=== PATIENT | female | born 1995 | race Hispanic/Latino ===

== ENCOUNTER 2025-03-23 22:28 | Inpatient (IN) | payer MEDICAID ==
[~2025-03-23] VITALS: Ht 149.9 cm; Wt 82.1 kg
[2025-03-23] MEDS ORDERED: TERBUTALINE SULFATE 1 MG/ML AMP SUB-Q PRN (23:45)
[2025-03-23] MEDS ORDERED: CALCIUM CARBONATE 500 MG CHEW PO PRN (23:45)
[2025-03-23] MEDS ORDERED: LACTATED RINGER'S 1,000 ML IV PRN (23:45)
[2025-03-23] MEDS ORDERED: MAGNESIUM HYDROXIDE/AL HYDROX 30 ML CUP PO PRN (23:45)
[2025-03-23 23:54] LABS: MCH 29.5 PG (25.6-32.2); MCHC 33.3 g/dL (32.2-35.5); MCV 88.4 fL (79.4-94.8); RBC 4.14 M/uL (3.93-5.22)
[2025-03-24] MEDS ORDERED: PENICILLIN G POTASSIUM 5 MUNITS in SODIUM CHLORIDE 0.9% 100 ML IV ONE
[2025-03-24 00:22] LABS: ABO O; ANTIBODY SCREEN NEGATIVE; RH POSITIVE
[2025-03-24 00:42] LABS: AMPHETAMINES, URINE NEGATIVE (NEGATIVE); BARBITURATES, URINE NEGATIVE (NEGATIVE); BENZODIAZEPINE, URINE NEGATIVE (NEGATIVE); CANNABINOID, URINE NEGATIVE (NEGATIVE); COCAINE, URINE NEGATIVE (NEGATIVE); ECSTASY, URINE NEGATIVE (NEGATIVE); FENTANYL, URINE NEGATIVE (NEGATIVE); METHADONE, URINE NEGATIVE (NEGATIVE); OPIATES, URINE NEGATIVE (NEGATIVE); OXYCODONE, URINE NEGATIVE (NEGATIVE); PHENCYCLIDINE, URINE NEGATIVE (NEGATIVE)
[2025-03-24 02:03] VITALS: BP 127/86
[2025-03-24] MEDS ORDERED: PENICILLIN G POTASSIUM 2.5 MUNITS in SODIUM CHLORIDE 0.9% 100 ML IV SCH (04:00)
[2025-03-24] MEDS ORDERED: CEFAZOLIN SODIUM 2 GM in SODIUM CHLORIDE 0.9% 100 ML IV SCH (07:00)
[2025-03-24] MEDS ORDERED: AZITHROMYCIN 500 MG in DEXTROSE 5% 250 ML IV SCH (07:00)
[2025-03-24] MEDS ORDERED: MORPHINE SULFATE 1 MG/ML VIAL ONE (07:41)
[2025-03-24] MEDS ORDERED: Ropivacaine HCl 0.5% 30 ML VIAL ONE (07:41)
[2025-03-24] MEDS ORDERED: OXYTOCIN 10 UNITS/ML VIAL ONE (07:41)
[2025-03-24] MEDS ORDERED: fentaNYL citrate 100 MCG/2 ML VIAL ONE (07:41)
[2025-03-24] MEDS ORDERED: LIDOCAINE HCL 2% 5 ML SDV ONE (07:41)
[2025-03-24] MEDS ORDERED: BUPIVACAINE 0.75% IN DEXTROSE 2 ML AMP ONE (07:41)
[2025-03-24] MEDS ORDERED: SODIUM CHLORIDE 0.9% 20 ML IV ONE (07:41)
[2025-03-24] MEDS ORDERED: PHENYLEPHRINE HCL IN 0.9% NACL 1 MG/10 ML SYR ONE (08:11)
[2025-03-24] MEDS ORDERED: DEXAMETHASONE SOD PHOS 4 MG/ML VIAL ONE (08:59)
[2025-03-24] MEDS ORDERED: HYDROmorphone HCL 1 MG/ML SYR IV PRN (09:00)
[2025-03-24] MEDS ORDERED: PROCHLORPERAZINE EDISYLATE 10 MG/2 ML VIAL IV PRN ×2 (09:00→10:00)
[2025-03-24] MEDS ORDERED: NALOXONE HCL 0.4 MG SYR IV PRN (09:00)
[2025-03-24] MEDS ORDERED: KETOROLAC TROMETHAMINE 30 MG/ML VIAL IV PRN (09:00)
[2025-03-24] MEDS ORDERED: SENNOSIDES/DOCUSATE 1 EA TAB PO SCH (09:54)
[2025-03-24] MEDS ORDERED: LACTATED RINGER'S 1,000 ML IV SCH (09:58)
[2025-03-24] MEDS ORDERED: PROMETHAZINE HCL 25 MG SUPP PR PRN (10:00)
[2025-03-24] MEDS ORDERED: HYDROCODONE/ACETA 5/325 TAB PO PRN (10:00)
[2025-03-24] MEDS ORDERED: PROMETHAZINE HCL 25 MG TAB PO PRN (10:00)
[2025-03-24] MEDS ORDERED: ACETAMINOPHEN 500 MG TAB PO SCH (10:00)
[2025-03-24] MEDS ORDERED: OXYCODONE HCL 5 MG TAB PO PRN (10:00)
[2025-03-24] MEDS ORDERED: OXYTOCIN/0.9 % SODIUM CHLORIDE 500 ML IV SCH (10:00)
[2025-03-24] MEDS ORDERED: LIDOCAINE 2% VISCOUS 6 ML SYR TOP ONE (10:00)
[2025-03-24] MEDS ORDERED: METOCLOPRAMIDE HCL 10 MG/2 ML SDV IV PRN (10:00)
--- NOTE | 2025-03-24 10:03 | NUR ---
03/24/25 Treasure3 Karen Barba 7598- PT IS TRANSFERED TO ROOM 103 VIA STRETCHER. PT IS AWAKE AND TALKING WITH RN AND BARREL CAP SETTER. PT DENIES PAIN AND NAUSEA. BREATHING IS EVEN AND UNLABORED. BEDSIDE REPORT RECIEVED. SURGICAL SITE IS CDI. CAI IS DRAINING CLEAR, YELLOW URINE. LR WITH PIT IS INFUSING WNL IN THE L HAND. BABY IS AT BREAST WITH [facility]BC RN'S AT BEDSIDE WITH BABY. 0974- PT IS WITH BABY AT BREAST. PILLOW GIVEN TO PT TO SUPPORT ARMS WHILE BREAST FEEDING. LABOR AND SLINGER SEQUINS'S WITH BABY AT BEDSIDE. PT DENIES PAIN AND NAUSEA.
[2025-03-24 10:14] VITALS: BP 99/51
[2025-03-24] MEDS ORDERED: SIMETHICONE 80 MG CHEW PO SCH (11:00)
[2025-03-24] MEDS ORDERED: IBUPROFEN 600 MG TAB PO SCH (14:00)
--- NOTE | 2025-03-25 08:44 | OR ---
[facility] [address], [place] [address] Signed DATE OF OPERATION: 03/24/2025 SURGEON: Lola George MD PREOPERATIVE DIAGNOSES: 1. Intrauterine at 35 and 4/7th weeks. 2. Prior x2. 3. premature rupture of membranes. POSTOPERATIVE DIAGNOSES: 1. Intrauterine at 35 and 4/7th weeks. 2. Prior x2. 3. premature rupture of membranes. PROCEDURE: Repeat low transverse section. FINDINGS: Clear amniotic fluid. Female fetus in vertex presentation. Apgars of 9 and 9, weight of 5 pounds 11 ounces. Normal uterus, ovaries, and tubes. ANESTHESIA: Spinal. DIRECTOR OF CUSTOMER ACQUISITION: None. IV FLUIDS: 1300 mL crystalloid. QBL: 250 mL. URINE OUTPUT: 25 mL of clear urine. DRAINS: Dawn to gravity. SPECIMENS: Electronically Signed By: LOLA GEORGE MD 03/25/25 0844 PATIENT NAME: MARGARET CARO OPERATIVE REPORT DATE OF : 89 REPORT #: [id number] PHYSICIAN: LOLA GEORGE MD PCP: NO PRIMARY CARE PHYSICIAN REPORT IS CONFIDENTIAL AND NOT TO BE RELEASED WITHOUT AUTHORIZATION [facility] [address] [place] [id number] Signed None. COUNTS: Correct x2. COMPLICATIONS: None apparent. TECHNIQUE IN DETAIL: With informed consent, the patient was taken to the operating room where spinal analgesia was placed. Lower extremities were placed in SCD pneumatic compression devices. 2 g of Ancef and 500 mg of azithromycin were given IV per protocol. She was prepped and draped in sterile fashion and time-out was performed per protocol. Under adequate analgesia, approximately 8 inch Pfannenstiel skin incision was made. The old keloid scar on her skin from a previous was removed. Sharp dissection was carried down to the layer of the rectus fascia, which was nicked in the midline. The rectus fascia little was enlarged bilaterally using sharp dissection. The rectus muscles were then taken down from the fascia using a combination of sharp and blunt dissection. This was performed both superiorly and inferiorly. The rectus muscles were in the midline at the most superior aspect. The separation of the rectus muscles was carried out inferiorly using sharp dissection. The peritoneum was identified, grasped with hemostats and elevated. It was carefully incised with Metzenbaum scissors, ensuring no bowel below. The peritoneal opening was enlarged with the surgeon's finger. A finger sweep on the anterior aspect of the abdominal wall revealed many omental adhesions as well as the bladder adhesed superiorly. We then carefully enlarged this peritoneal opening with sharp dissection paying close attention to the omental adhesions below as well as the bladder adhesions to the lower part of the uterus and omentum. A bladder flap was created with combination of sharp and blunt dissection to get the bladder away from the lower uterine segment. We had to dissect approximately 3 inches and dropped the bladder this distance to ensure its safety. A bladder blade was then placed. A scalpel was then used to create a low transverse uterine incision. Sharp dissection was carried down to the superficial layers. The remainder of the myometrium was transected with the surgeon's finger. The bulging membranes were ruptured with an Allis clamp. The uterine incision was enlarged with blunt dissection in a superior to inferior direction. The surgeon's hand was placed into the lower uterine segment. head was elevated and delivered with fundal pressure. There was no nuchal cord and no dystocia. After approximately 10 seconds, the cord was clamped x2 and cut and the baby was handed to the transition team. Intravenous oxytocin was initiated. The placenta delivered intact with a three-vessel Electronically Signed By: LOLA GEORGE MD 03/25/25 0844 PATIENT NAME: MARGARET CARO OPERATIVE REPORT DATE OF : [birth year] REPORT #: [id number] PHYSICIAN: LOLA GEORGE MD PCP: NO PRIMARY CARE PHYSICIAN REPORT IS CONFIDENTIAL AND NOT TO BE RELEASED WITHOUT AUTHORIZATION [facility] [address], [place] [address] Signed cord after obtaining some blood for analysis. Good uterine tone was achieved with intravenous oxytocin and fundal massage. The uterus was gently externalized and the uterine cavity was curetted with laparotomy sponges. The hysterotomy site was closed with 0 Monocryl in a running locked fashion. A 2nd imbricating layer of 0 Monocryl was also placed in a running fashion. Good hemostasis of the uterine incision was noted at this time. The posterior cul-de-sac was then cleared of all blood and clot. Uterine incision and bladder flap were inspected again and noted to be hemostatic. Uterus was then gently returned to the pelvis. The left and right paracolic gutters were cleared of all blood and clot with moist laparotomy sponges. The hysterotomy site and bladder flap were inspected one final time and good hemostasis was again noted. At this point, the rectus muscles and peritoneum were reapproximated using 2-0 chromic in a running fashion. The rectus muscle bellies were inspected and rendered hemostatic with electrocautery. The rectus fascia was reapproximated with 0 Vicryl in a running manner. Superficial incision was irrigated and rendered hemostatic with electrocautery. The subcutaneous tissue was reapproximated with 2-0 chromic suture in a running fashion. The skin was reapproximated with the Insorb stapler device. Steri-Strips and Dermabond were placed. Bandage was placed over the wound and the uterus was then expressed of all clot. DISPOSITION: The patient was taken to the recovery room in stable condition. Lola George MD BB/MODL /[id number] Copies: ~ Electronically Signed By: LOLA GEORGE MD 03/25/25 0844 PATIENT NAME: MARGARET CARO OPERATIVE REPORT DATE OF : [birth year] REPORT #: [id number] PHYSICIAN: LOLA GEORGE MD PCP: NO PRIMARY CARE PHYSICIAN REPORT IS CONFIDENTIAL AND NOT TO BE RELEASED WITHOUT AUTHORIZATION
== END 2025-03-26 13:46 | disposition home or self-care (01) | DRG 788 ==
LOC: FBCO 22:28 → FBC 23:25
PROVIDERS: ADMIT Obstetrics & Gynecology; ATTEND Obstetrics & Gynecology
PROC: 3E03329 Introduction of Other Anti-infective into Peripheral Vein, Percutaneous Approach (ICD-10-PCS; 2025-03-24)
PROC: 10D00Z1 Extraction of Products of Conception, Low, Open Approach (ICD-10-PCS; principal; 2025-03-24 07:51)
DX: O34.211 Maternal care for low transverse scar from previous cesarean delivery (principal); Z3A.35 35 weeks gestation of pregnancy; Z37.0 Single live birth; O42.013 Preterm premature rupture of membranes, onset of labor within 24 hours of rupture, third trimester; O99.824 Streptococcus B carrier state complicating childbirth; Z87.891 Personal history of nicotine dependence; O24.429 Gestational diabetes mellitus in childbirth, unspecified control
CPT/HCPCS: 01961; 36415; 80307; 85027; 86850; 86900; 86901; A9270; J0165; J0456; J0688; J1100; J2003; J2274; J2405; J2540; J2590; J2795; J3010; J7060; J7121